=== PATIENT | male | born 1955 | race Caucasian/White ===

== ENCOUNTER → 2018-04-08 09:07 | Outpatient (CLI) | payer OTHER, SELFPAY ==
[2018-04-08 10:57] LABS: Anion Gap 7.9 mmol/L (3-11); BUN 19 mg/dL (7-18); CO2 28.1 mmol/L (21.0-32.0); CREATININE 1.42 mg/dL (0.70-1.30); Calcium 8.4 mg/dL (8.5-10.1); Chloride 104 mmol/L (98-107); Estimated GFR 50.19 (mL/min/1.73m2); Glucose 130 mg/dL (70-100); Potassium 4.1 mmol/L (3.5-5.1); Sodium 140 mmol/L (136-145)
== END ==
PROVIDERS: PCP Family Medicine; Visit Provider Family Medicine
DX: I73.9 Peripheral vascular disease, unspecified (principal)
CPT/HCPCS: 36415; 80048

== ENCOUNTER → 2018-05-23 13:43 | Outpatient (BNVA) | payer MEDICARE, SELFPAY | PROVIDERS: PCP Family Medicine; Visit Provider Surgery | DX: Z48.89 Encounter for other specified surgical aftercare (principal); K40.90 Unilateral inguinal hernia, without obstruction or gangrene, not specified as recurrent; K42.9 Umbilical hernia without obstruction or gangrene ==

== ENCOUNTER 2019-05-21 11:28 | Outpatient (CLI) | payer MEDICARE, SELFPAY ==
[2019-05-21 13:29] LABS: Anion Gap 8.1 mmol/L (3-11); BUN 19 mg/dL (7-18); CO2 28.9 mmol/L (21.0-32.0); CREATININE 1.25 mg/dL (0.70-1.30); Calcium 9.3 mg/dL (8.5-10.1); Chloride 102 mmol/L (98-107); Estimated GFR 57.97 (mL/min/1.73m2); Glucose 144 mg/dL (70-100); Potassium 4.6 mmol/L (3.5-5.1); Sodium 139 mmol/L (136-145)
== END 2019-05-21 11:48 ==
PROVIDERS: PCP Family Medicine; Visit Provider Family Medicine
DX: I10 Essential (primary) hypertension (principal)
CPT/HCPCS: 36415; 80048

== ENCOUNTER 2020-05-19 11:14 | Outpatient (CLI) | payer MEDICARE, SELFPAY ==
[2020-05-20 12:37] LABS: COVID-19 RT-PCR Result NEGATIVE (Negative)
== END 2020-05-19 11:34 ==
PROVIDERS: PCP Nurse Practitioner Family; Visit Provider Nurse Practitioner
DX: Z11.59 Encounter for screening for other viral diseases (principal); Z01.818 Encounter for other preprocedural examination
CPT/HCPCS: U0003

== ENCOUNTER 2020-05-29 21:37 | Outpatient (REF) | payer MEDICARE, SELFPAY ==
[2020-05-29 21:23] LABS: Anion Gap 5.2 mmol/L (3-11); BUN 17 mg/dL (7-18); CO2 31.8 mmol/L (21.0-32.0); CREATININE 1.14 mg/dL (0.70-1.30); Calcium 9.3 mg/dL (8.5-10.1); Calculated LDL 47 mg/dL (<100); Chloride 100 mmol/L (98-107); Cholesterol 99 mg/dL (<200); Glucose 152 mg/dL (74-106); HDL Cholesterol 32 mg/dL (40-60); Potassium 3.7 mmol/L (3.5-5.1); Sodium 137 mmol/L (136-145); Triglyceride 104 mg/dL (<150)
[2020-05-29 21:38] LABS: Hemoglobin A1C 6.7 % (<5.7)
== END 2020-05-29 21:57 ==
LOC: LBN 21:37
PROVIDERS: PCP Nurse Practitioner Family; Visit Provider Nurse Practitioner Family
DX: E11.9 Type 2 diabetes mellitus without complications (principal); I65.22 Occlusion and stenosis of left carotid artery
CPT/HCPCS: 80048; 80061; 83036

== ENCOUNTER 2021-03-11 01:48 | Outpatient (CLI) | payer MEDICARE, SELFPAY ==
--- NOTE | 2021-03-11 08:30 | DI.CTLCSR_ITS ---
Exam(s) CT CHEST LUNG CANCER SCREEN EXAM: CT CHEST LUNG CANCER SCREEN CLINICAL HISTORY: Screening for lung cancer,CURRENT SMOKER, F17.210 TECHNIQUE: Imaging Protocol: Axial computed tomography images with coronal and sagittal reformatted images were created and reviewed COMPARISON: No exams were available for comparison FINDINGS: Tracheobronchial tree: Patent where visualized. Pulmonary parenchyma: No consolidation or dominant measurable mass. Moderate paraseptal and mild cent rilobular emphysema. Lung Nodules: None. Mediastinum and [place]: No dominant adenopathy or fluid collection. There is a small hiatal hernia. Pleura: No effusion or pneumothorax. Heart: The heart is not dilated. Mild coronary artery calcification. No pericardial effusion. Aorta: Thoracic aorta non-dilated.Atherosclerosis. Upper abdomen: Unremarkable. Soft Tissues: Unremarkable. Bones: Within normal limits. IMPRESSION: No pulmonary nodules. Lung RADS Cat 1 - Negative: No nodules and definitely benign nodules Lung-RADS 1.0 CATEGORIES: Category 0 - Prior chest CT exam(s) being located for comparison. Category 1 - Annual screening in 12 months. No nodules or definitely benign nodules. Category 2 - Annual screening in 12 months. Benign appearance. Nodules with low likelihood of becomin g active cancer. Category 3 - 6-month follow-up. Probably benign. Short-term follow-up suggested. Nodules with low lik elihood of becoming active cancer. Category 4A - 3-month follow-up and CT/PET if >8 mm in size. Suspicious finding. Findings which requi re additional testing. Category 4B - Findings which require additional testing and tissue sampling. Suspicious finding. Modifier S- Potentially clinically significant finding. (Non lung cancer) RADIATION DOSE DELIVERED: 76.29mGy.cm Total DLP 1.84mGy CTDIvol 76.29mGy.cm Total DLP 1.84mGy CTDIvol DATA REPOSITORY: All CT scans at this facility are submitted to the National Radiology Data Registry (NRDR) Dose Index Registry (DIR) with the [employer] ([employer]). RADIATION OPTIMIZATION: All CT scans at this facility use at least one of these dose optimization te chniques: automated exposure control; mA and/or kV adjustment per patient size (includes targeted exa ms where dose is matched to clinical indication); or iterative reconstruction.
== END 2021-03-11 02:08 ==
PROVIDERS: PCP Nurse Practitioner Family; Visit Provider Nurse Practitioner Family
DX: Z12.2 Encounter for screening for malignant neoplasm of respiratory organs (principal); F17.210 Nicotine dependence, cigarettes, uncomplicated
CPT/HCPCS: 71271

== ENCOUNTER 2021-04-10 20:38 | Outpatient (REF) | payer MEDICARE, SELFPAY ==
[2021-04-10 21:21] LABS: Anion Gap 8.7 mmol/L (3-11); BUN 21 mg/dL (7-18); CO2 29.3 mmol/L (21.0-32.0); CREATININE 1.3 mg/dL (0.70-1.30); Calcium 9.2 mg/dL (8.5-10.1); Calculated LDL 50 mg/dL (<100); Chloride 99 mmol/L (98-107); Cholesterol 103 mg/dL (<200); Estimated GFR 55.06 (mL/min/1.73m2); Glucose 222 mg/dL (74-106); HDL Cholesterol 34 mg/dL (40-60); Potassium 4.1 mmol/L (3.5-5.1); Sodium 137 mmol/L (136-145); Triglyceride 96 mg/dL (<150)
[2021-04-13 08:28] LABS: PSA, Screening 0.7 ng/mL (0.0-4.5)
== END 2021-04-10 20:39 | disposition home or self-care (01) ==
LOC: LBN 20:38
PROVIDERS: PCP Nurse Practitioner Family; Visit Provider Nurse Practitioner Family
DX: E78.5 Hyperlipidemia, unspecified (principal); I10 Essential (primary) hypertension; N40.0 Benign prostatic hyperplasia without lower urinary tract symptoms; Z12.5 Encounter for screening for malignant neoplasm of prostate
CPT/HCPCS: 80048; 80061; 84153

== ENCOUNTER 2022-03-15 03:32 | Outpatient (CLI) | payer MEDICARE, SELFPAY ==
[2022-03-15 13:20] LABS: Anion Gap 11.4 mmol/L (3-11); BUN 30 mg/dL (7-18); CO2 29.6 mmol/L (21.0-32.0); CREATININE 1.6 mg/dL (0.70-1.30); Calcium 9.1 mg/dL (8.5-10.1); Chloride 97 mmol/L (98-107); Estimated GFR 43.33 (mL/min/1.73m2); Glucose 192 mg/dL (74-106); Potassium 3.5 mmol/L (3.5-5.1); Sodium 138 mmol/L (136-145)
== END 2022-03-15 03:33 | disposition home or self-care (01) ==
LOC: LOS 03:32
PROVIDERS: PCP Nurse Practitioner Family; Visit Provider Nurse Practitioner Family
DX: I10 Essential (primary) hypertension (principal)
CPT/HCPCS: 36415; 80048

== ENCOUNTER 2023-03-21 04:28 | Outpatient (CLI) | payer OTHER, SELFPAY ==
[2023-03-21 12:26] LABS: CREATININE 1.5 mg/dL (0.70-1.30); Calculated LDL 49 mg/dL (<100); Cholesterol 106 mg/dL (<200); Estimated GFR 50.08 (mL/min/1.73m2); HDL Cholesterol 33 mg/dL (40-60); Potassium 3.1 mmol/L (3.5-5.1); Triglyceride 120 mg/dL (<150)
== END 2023-03-21 04:29 | disposition home or self-care (01) ==
LOC: LOS 04:28
PROVIDERS: PCP Nurse Practitioner Family; Visit Provider Nurse Practitioner Family
DX: I10 Essential (primary) hypertension (principal); E78.5 Hyperlipidemia, unspecified; E11.9 Type 2 diabetes mellitus without complications
CPT/HCPCS: 36415; 80061; 82565; 84132

== ENCOUNTER 2024-03-21 11:49 | Outpatient (REF) | payer OTHER, SELFPAY ==
[2024-03-21 13:41] LABS: COMMENT (LAB VIEW ONLY) 132.37 mg/dL; Microalb ug/mg Crea 15.3 ug/mg Cr
== END 2024-03-21 11:50 | disposition home or self-care (01) ==
LOC: NCHCN 11:49
PROVIDERS: PCP Nurse Practitioner Family; Visit Provider Nurse Practitioner Family
DX: E11.9 Type 2 diabetes mellitus without complications (principal)
CPT/HCPCS: 82043; 82570

== ENCOUNTER 2024-03-29 03:07 | Outpatient (CLI) | payer OTHER, SELFPAY ==
[2024-03-29 12:33] LABS: CREATININE 1.3 mg/dL (0.70-1.30); Calculated LDL 32 mg/dL (<100); Cholesterol 94 mg/dL (<200); HDL Cholesterol 36 mg/dL (40-60); Potassium 3.5 mmol/L (3.5-5.1); Triglyceride 131 mg/dL (<150)
== END 2024-03-29 03:08 | disposition home or self-care (01) ==
LOC: LOS 03:09
PROVIDERS: PCP Nurse Practitioner Family; Visit Provider Nurse Practitioner Family
DX: I10 Essential (primary) hypertension (principal); E78.5 Hyperlipidemia, unspecified
CPT/HCPCS: 36415; 80061; 82565; 84132

== ENCOUNTER 2025-03-25 01:51 | Outpatient (CLI) | payer MEDICARE, SELFPAY ==
[2025-03-25 12:34] LABS: Anion Gap 6.8 mmol/L (3-11); BUN 28 mg/dL (7-18); CO2 31.2 mmol/L (21.0-32.0); Calcium 9.3 mg/dL (8.5-10.1); Calculated LDL 33 mg/dL (<100); Chloride 99 mmol/L (98-107); Cholesterol 85 mg/dL (<200); Estimated GFR 53.74 (mL/min/1.73m2); Glucose 143 mg/dL (74-106); HDL Cholesterol 43 mg/dL (>or=40); Potassium 3.3 mmol/L (3.5-5.1); Sodium 137 mmol/L (136-145); Triglyceride 46 mg/dL (<150)
[2025-03-25 14:12] LABS: Hemoglobin A1C 6.4 % (<5.7)
[2025-03-25 18:16] LABS: PSA, Screening 0.8 ng/mL (<=6.5)
== END 2025-03-25 01:52 | disposition home or self-care (01) ==
LOC: LOS 01:52
PROVIDERS: PCP Nurse Practitioner Family; Visit Provider Nurse Practitioner Family
DX: Z13.1 Encounter for screening for diabetes mellitus (principal); Z13.6 Encounter for screening for cardiovascular disorders; Z12.5 Encounter for screening for malignant neoplasm of prostate
CPT/HCPCS: 36415; 80048; 80061; 84153; 83036